=== PATIENT | male | born 1965 | race Caucasian/White ===

== ENCOUNTER 2023-01-23 18:06 | Inpatient (IN) | payer OTHER ==
[~2023-01-23] VITALS: Ht 180.3 cm; Wt 67.6 kg
[2023-01-23 00:15] VITALS: BP 108/80; TEMP 97.5; O2SAT 99
[~2023-01-23 18:06] MED LIST: AMLO1TAB24 PO; ASPI-1 PO; ATEN50TA2 PO; Atorvastatin PO; COUM1TAB17 PO; LEXA1TAB PO; LOVE0.6I2 SC; METO1TAB33 PO; TELM1TAB35 PO
[2023-01-23] MEDS ORDERED: XARE20TA PO ×2 (18:26→21:51)
[2023-01-23] MEDS ORDERED: METO1TAB33 PO ×2 (18:26→21:51)
[2023-01-23 18:52] LABS: BASO # 0.1 10^3/uL (0.0-0.2); BASO % 1.2 % (0.0-1.0); EOS # 0.1 10^3/uL (0.0-0.5); EOS % 0.7 % (0.0-3.0); HEMATOCRIT 52.4 % (42.0-52.0); HEMOGLOBIN 16.9 g/dl (13.5-17.5); LYMPH # 2.6 10^3/uL (1.5-5.0); LYMPH % 24.9 % (24.0-44.0); MEAN CORPUSCULAR HEMOGLOBIN 30.5 pg (27.0-33.0); MEAN CORPUSCULAR HGB CONC 32.3 g/dl (32.0-36.5); MEAN CORPUSCULAR VOLUME 94.4 fl (80.0-96.0); MONO # 0.8 10^3/uL (0.0-0.8); MONO % 8.2 % (2.0-8.0); NEUTROPHILS # 6.6 10^3/uL (1.5-8.5); NEUTROPHILS % 64.6 % (36.0-66.0); PLATELET COUNT, AUTOMATED 188 10^3/uL (150-450); RED BLOOD COUNT 5.55 10^6/uL (4.30-6.10); WHITE BLOOD COUNT 10.3 10^3/uL (4.0-10.0)
[2023-01-23] MEDS ORDERED: IPRATROPIUM 0.5MG/ALBUTEROL 2.5MG INH SOL UD 3ML (DUONEB) NEB ONE (19:25)
[2023-01-23 21:03] LABS: ALBUMIN 3.4 G/DL (3.2-5.2); ALKALINE PHOSPHATASE 50 U/L (46-116); ALT/SGPT 14 U/L (7.0-40); AST/SGOT 31 U/L (<34); BILIRUBIN,DIRECT 1.4 MG/DL (<0.4); BILIRUBIN,TOTAL 3.8 MG/DL (0.3-1.2); BLOOD UREA NITROGEN 17 MG/DL (9-23); CALCIUM LEVEL 8.7 MG/DL (8.5-10.1); CARBON DIOXIDE LEVEL 23 MMOL/L (20-31); CHLORIDE LEVEL 108 MMOL/L (98-107); CK-MB VALUE MASS < 1.0 NG/ML (<3.6); CPK CREATINE PHOSPHOKINASE 46 U/L (46-171); CREATININE FOR GFR 0.88 MG/DL (0.70-1.30); GLOMERULAR FILTRATION RATE > 60.0 (>56); GLUCOSE, FASTING 123 MG/DL (60-100); MB/CK RELATIVE INDEX 2.17 (< OR =4); POTASSIUM SERUM 4.6 MMOL/L (3.5-5.1); SODIUM LEVEL 139 MMOL/L (136-145); TOTAL PROTEIN 6.4 G/DL (5.7-8.2)
[2023-01-23] MEDS ORDERED: FUROSEMIDE 100MG/10ML VIAL IV ONE (21:50)
[2023-01-23] MEDS ORDERED: HOME MED LIST COMPLETE! XX SCH (21:55)
[2023-01-23] MEDS ORDERED: ACETAMINOPHEN TAB 650MG DOSE (2X325MG) PO PRN (23:30)
[2023-01-24] VITALS (29 sets, daily range): BP systolic 86–180; BP diastolic 61–111; TEMP 96.3–97.8; O2SAT 94–100
[2023-01-24] MEDS: THIAMINE 100 MG TAB PO SCH ×3 (00:36→19:55)
[2023-01-24] MEDS ORDERED: diltiaZEM 125 MG in NS 100 ML IV SCH ×2 (00:45→01:00)
[2023-01-24 06:15] LABS: FREE T4 1.62 NG/DL (0.89-1.76)
[2023-01-24 06:23] LABS: BLOOD UREA NITROGEN 18 MG/DL (9-23); CARBON DIOXIDE LEVEL 24 MMOL/L (20-31); CHLORIDE LEVEL 107 MMOL/L (98-107); GLOMERULAR FILTRATION RATE > 60.0 (>56); GLUCOSE, FASTING 127 MG/DL (60-100); MAGNESIUM LEVEL 1.3 MG/DL (1.8-2.4); POTASSIUM SERUM 3.4 MMOL/L (3.5-5.1); SODIUM LEVEL 140 MMOL/L (136-145)
[2023-01-24] MEDS ORDERED: POTASSIUM CHLORIDE 10MEQ SR TABLET PO ONE ×2 (06:45→07:05)
[2023-01-24] MEDS: MAG SULF 1GM/100ML (MAG RUN) 1 GM in IV 1 EA IV SCH ×2 (06:56→08:11)
[2023-01-24] MEDS ORDERED: MAGNESIUM OXIDE 400MG TAB (MAG-OX) PO ONE (07:05)
[2023-01-24] MEDS: DOCUSATE SODIUM 100MG CAPSULE PO SCH ×2 (08:11→19:55)
[2023-01-24] MEDS: FUROSEMIDE 20MG/2ML VIAL IV SCH (08:11)
[2023-01-24] MEDS: FOLIC ACID 1MG TAB PO SCH (08:12)
[2023-01-24] MEDS: MULTIVITAMINS/MINERALS THERAP 1 TAB PO SCH (08:12)
[2023-01-24] MEDS ORDERED: RIVAROXABAN 20MG TAB (XARELTO) PO SCH (09:00)
[2023-01-24] MEDS: METOPROLOL SUCC (TopROL XL) 100MG *XL* TAB PO SCH (12:50)
[2023-01-24 16:21] LABS: PH BODY FLUID 7.775 UNITS (NOT ESTABLISHED); SOURCE, BODY FLUID pH PLEURAL
[2023-01-24 16:31] LABS: SOURCE, BODY FLUID PLEURAL
[2023-01-24 16:32] LABS: APPEARANCE, BODY FLUID HAZY (CLEAR); PLEURAL FL COLOR YELLOW (COLORLESS)
[2023-01-24 16:58] LABS: SOURCE, BODY FLUID ALBUMIN PLEURAL
[2023-01-24 17:05] LABS: LDH, BODY FLUID 55 U/L (NOT ESTABLISHED); SOURCE, BODY FLUID LDH PLEURAL
[2023-01-24 17:06] LABS: SOURCE, BODY FLUID TOT PROTEIN PLEURAL; TOTAL PROTEIN, BODY FLUID < 2.0 G/DL (NOT ESTABLISHED)
[2023-01-25 03:54] VITALS: BP 126/82; TEMP 97.5; O2SAT 99
[2023-01-25 05:36] LABS: BASO # 0.1 10^3/uL (0.0-0.2); BASO % 0.8 % (0.0-1.0); EOS # 0.1 10^3/uL (0.0-0.5); EOS % 0.9 % (0.0-3.0); HEMATOCRIT 44.5 % (42.0-52.0); LYMPH # 2.6 10^3/uL (1.5-5.0); MEAN CORPUSCULAR HEMOGLOBIN 30.7 pg (27.0-33.0); MEAN CORPUSCULAR HGB CONC 33.7 g/dl (32.0-36.5); MONO # 0.8 10^3/uL (0.0-0.8); MONO % 7.8 % (2.0-8.0); NEUTROPHILS # 7.1 10^3/uL (1.5-8.5); NEUTROPHILS % 66.1 % (36.0-66.0); PLATELET COUNT, AUTOMATED 170 10^3/uL (150-450); RED BLOOD COUNT 4.89 10^6/uL (4.30-6.10); WHITE BLOOD COUNT 10.7 10^3/uL (4.0-10.0)
[2023-01-25 05:51] LABS: ALBUMIN 3.5 G/DL (3.2-5.2); ALKALINE PHOSPHATASE 55 U/L (46-116); ALT/SGPT 13 U/L (7.0-40); AST/SGOT 15 U/L (<34); BILIRUBIN,TOTAL 2.7 MG/DL (0.3-1.2); BLOOD UREA NITROGEN 18 MG/DL (9-23); CALCIUM LEVEL 8.9 MG/DL (8.5-10.1); CARBON DIOXIDE LEVEL 25 MMOL/L (20-31); CHLORIDE LEVEL 106 MMOL/L (98-107); GLOMERULAR FILTRATION RATE > 60.0 (>56); GLUCOSE, FASTING 108 MG/DL (60-100); MAGNESIUM LEVEL 1.5 MG/DL (1.8-2.4); POTASSIUM SERUM 3.8 MMOL/L (3.5-5.1); SODIUM LEVEL 141 MMOL/L (136-145); TOTAL PROTEIN 6.4 G/DL (5.7-8.2)
[2023-01-25 07:59] VITALS: BP 130/108; TEMP 98.2; O2SAT 97
[2023-01-25] MEDS ORDERED: MAGNESIUM OXIDE 400MG TAB (MAG-OX) PO ONE (08:00)
[2023-01-25] MEDS: MULTIVITAMINS/MINERALS THERAP 1 TAB PO SCH (08:31)
[2023-01-25] MEDS: FUROSEMIDE 20MG/2ML VIAL IV SCH (08:31)
[2023-01-25 08:32] VITALS: BP 130/108
[2023-01-25] MEDS: DOCUSATE SODIUM 100MG CAPSULE PO SCH (08:32)
[2023-01-25] MEDS: METOPROLOL SUCC (TopROL XL) 100MG *XL* TAB PO SCH (08:32)
[2023-01-25] MEDS: THIAMINE 100 MG TAB PO SCH (08:32)
[2023-01-25] MEDS: FOLIC ACID 1MG TAB PO SCH (08:32)
== END 2023-01-25 13:44 | disposition home or self-care (01) | DRG 188 ==
LOC: M ED 18:06 → M ED INP 22:03 → M PCU 01-24 00:07
PROVIDERS: ADMIT Internal Medicine; ATTEND Family Medicine
PROC: 0W993ZZ Drainage of Right Pleural Cavity, Percutaneous Approach (ICD-10-PCS; principal; 2023-01-24 16:30)
PROC: B246ZZZ Ultrasonography of Right and Left Heart (ICD-10-PCS; 2023-01-25)
DX: J90 Pleural effusion, not elsewhere classified (principal); R06.00 Dyspnea, unspecified; I48.91 Unspecified atrial fibrillation; R94.6 Abnormal results of thyroid function studies; F17.210 Nicotine dependence, cigarettes, uncomplicated; Z86.73 Personal history of transient ischemic attack (TIA), and cerebral infarction without residual deficits; Z79.01 Long term (current) use of anticoagulants; Z79.899 Other long term (current) drug therapy